=== PATIENT | female | born 1995 | race Caucasian/White ===

== ENCOUNTER → 2017-02-22 | Outpatient (CLI) | payer BC | END | disposition home or self-care (01) | LOC: LAB.O 14:06 | PROVIDERS: ATTEND Nurse Practitioner Family | DX: R11.0 Nausea (principal) ==

== ENCOUNTER → 2017-08-20 | Outpatient (CLI) | payer BC | LOC: LAB.O 20:40 | PROVIDERS: ATTEND Nurse Practitioner Family | DX: M79.609 Pain in unspecified limb (principal) ==

== ENCOUNTER → 2017-12-20 | Outpatient (CLI) | payer BC | LOC: GMAJ 12:21 | PROVIDERS: ATTEND Family Medicine | DX: M25.561 Pain in right knee (principal); M25.562 Pain in left knee ==